=== PATIENT | female | born 1930 | race Caucasian/White ===

== ENCOUNTER 2020-02-25 22:11 | Inpatient (IN) | payer MEDICARE, OTHER ==
[~2020-02-25 22:11] MED LIST: Iopamidol-370 76% 500 ML 1 ML ONE
[2020-02-25] MEDS ORDERED: Ondansetron PF 4 MG/2 ML Vial ONE (22:49)
[2020-02-25 22:57] LABS: ALT (SGPT) 7 U/L (8-55); AST (SGOT) 13 U/L (5-34); Albumin 3.9 g/dL (3.4-4.8); Alkaline Phosphatase 66 U/L (40-110); Anion Gap 14 mmol/L (10-20); BUN (Urea Nitrogen) 9 mg/dL (9.8-20.1); CK (CPK) 30 U/L (29-168); Calc. Creatinine Clearance 0 mL/min (70-130); Calcium 9.4 mg/dL (7.8-10.44); Carbon Dioxide 26 mmol/L (23-31); Chloride 104 mmol/L (98-107); Estimated GFR-MDRD 75; Globulin 2.7 g/dL (2.4-3.5); Glucose 115 mg/dL (83-110); Lipase Less than 4 U/L (8-78); Potassium 3.5 mmol/L (3.5-5.1); Protein, Total 6.6 g/dL (6.0-8.3); Sodium 140 mmol/L (136-145)
[2020-02-25 23:17] LABS: #Eosinphils 0.8 thou/uL (0.0-0.7); #Monocytes 0.5 thou/uL (0.11-0.59); #Neutrophils 7.1 thou/uL (1.40-6.50); %Basophils 0.2 % (0.0-1.0); %Eosinophils 8.5 % (0.0-10.0); %Lymphocytes 10.7 % (21.0-51.0); %Neutrophils 75.6 % (42.0-75.0); Hemoglobin 14.2 g/dL (12.0-16.0); Mean Corpuscular HGB CONC 32.5 g/dL (32.0-36.0); Mean Corpuscular Hemoglobin 30.9 pg (27.0-31.0); Mean Corpuscular Volume 95.1 fL (78.0-98.0); Mean Platelet Volume 6.6 fL (7.4-10.4); Platelet Count 222 thou/uL (130-400); RBC Distribution Width 11.5 % (11.5-14.5); White Blood Cell (WBC) Count 9.4 thou/uL (4.8-10.8)
[2020-02-25 23:31] LABS: Bacteria/HPF 4+ HPF (None Seen); Bilirubin Negative (Negative); Blood, Urine 2+ (Negative); Clarity Turbid (Clear); Glucose, Urine (Dipstick) Normal (Negative); Ketone, Urine Trace mg/dL (Negative); Leukocyte 500 Leu/uL (Negative); Nitrite Negative (Negative); Protein, Urine (Dipstick) Negative (Neg-Trace); Specific Gravity, Urine 1.012 (1.002-1.036); Squamous Epithelial None Seen HPF (0-3); Urobilinogen Normal mg/dL (Less than 2); WBC/HPF Greater than 50 HPF (0-3)
[2020-02-25] MEDS ORDERED: Morphine 4 MG/ML VIAL ONE (23:40)
--- NOTE | 2020-02-25 23:40 | CT ---
EXAM: CT ABDOMEN AND PELVIS HISTORY: Trauma pain and cramping. Nausea. COMPARISON: None. Procedure: Multiple contiguous axial images were obtained and a CT of the abdomen and pelvis with IV contrast. C oronal reformats were performed. FINDINGS: Lower Chest: Chronic changes Vessels: Normal caliber aorta. Atherosclerosis. Heart: Enlarged heart. Small pericardial fluid. Abdomen: Portal vein:Patent Gallbladder: Cholelithiasis, without evidence of cholecystitis. Liver: Subcentimeter hypodensities are favored to be hepatic cysts. Largest hypodensity is in segment 6 of the liver measures 1.1 cm. No enhancing masses within the liver. Pancreas: Atrophy. No masses. Spleen: Appropriate enhancement. Adrenals: within normal limits. Kidneys: Symmetric renal cortical thinning. There are bilateral parapelvic cysts as well as bilateral cortical cysts. Bilaterally no obstructive uropathy. Peritoneum: Small amount of fluid in the paracolic gutters and perihepatic/perisplenic mesentery. Bowel: Limited evaluation by the lack of oral contrast. Jejunal and proximal ileal loops are dilated and fluid-filled. Right inguinal hernia. There is fluid in the hernia sac. There is also fluid in the adjacent small bowel loops. The afferent loops are fluid-filled. Efferent loops are decompressed but hyperemic. Ileocecal junction is normal. Scattered fecal material in a nondistended, nondilated colon. Diverticulosis, without evidence of diverticulitis. Normal caliber appendix. Mesentery and Retroperitoneum: No enlarged mesenteric or retroperitoneal lymph nodes. Abdominal Wall: Bilateral inguinal hernias. Right inguinal hernia contains a short segment of bowel w hich is incarcerated. Left inguinal hernia demonstrates mesenteric fat. Pelvis: Reproductive Organs: Reproductive organs are unremarkable. Pelvis: There is free fluid in the pelvis. No mass or lymphadenopathy. Bladder: Decompressed. Mild enhancement is nonspecific. Correlate for cystitis. 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 IMPRESSION: 1. Right-sided inguinal hernia with associated high-grade bowel obstruction. 2. Left inguinal hernia containing mesenteric fat. 3. Normal caliber appendix. 4. Diverticulosis, without evidence of diverticulitis.
[2020-02-25] MEDS ORDERED: Piperacillin/Tazobactam 3.375 GM VIAL ONE (23:48)
[2020-02-26] MEDS ORDERED: Promethazine HCl 25 MG/ML VIAL IM PRN (01:15)
[2020-02-26] MEDS ORDERED: hydrALAZINE 20 MG/ML VIAL SLOW IVP PRN (01:15)
[2020-02-26] MEDS ORDERED: Dextrose 5% in Water 1,000 ML IV PRN (01:15)
[2020-02-26] MEDS ORDERED: Dextrose 50% Abboject 50 ML SYRINGE SLOW IVP PRN (01:15)
[2020-02-26] MEDS: Morphine 2 MG/ML VIAL SLOW IVP PRN ×4 (01:29→18:12)
[2020-02-26] MEDS: Sodium Chloride 0.9% 1,000 ML IV SCH ×2 (01:29→11:11)
[2020-02-26] MEDS ORDERED: Gabapentin 300 MG CAP PO SCH (01:30)
[2020-02-26 01:55] VITALS: BMI 24.3
[2020-02-26] MEDS: Ondansetron PF 4 MG/2 ML Vial IVP PRN ×2 (03:20→11:10)
[2020-02-26 06:36] LABS: Anion Gap 17 mmol/L (10-20); BUN (Urea Nitrogen) 10 mg/dL (9.8-20.1); Calc. Creatinine Clearance 62 mL/min (70-130); Calcium 8.8 mg/dL (7.8-10.44); Carbon Dioxide 22 mmol/L (23-31); Chloride 105 mmol/L (98-107); Estimated GFR-MDRD 78; Glucose 142 mg/dL (83-110); Potassium 4.8 mmol/L (3.5-5.1); Sodium 139 mmol/L (136-145)
[2020-02-26] MEDS: Famotidine/PF 20 mg/2ml Vial SLOW IVP SCH ×2 (08:42→21:37)
[2020-02-26] MEDS: Famotidine 20 MG TAB PO SCH ×2 (08:43→21:33)
[2020-02-26] MEDS ORDERED: Lidocaine 1% PF 5 ML VIAL ONE (09:03)
[2020-02-26] MEDS ORDERED: PROPOFOL 200 MG/20 ML VIAL ONE (09:03)
[2020-02-26] MEDS ORDERED: Succinylcholine Chloride 20 MG/ML 10 ml SYRINGE FS ONE (09:03)
[2020-02-26] MEDS ORDERED: Rocuronium Bromide 10 MG/ML (10ML VIAL) ONE (09:03)
[2020-02-26] MEDS ORDERED: diphenhydrAMINE 50 MG/ML VIAL ONE (09:03)
[2020-02-26] MEDS ORDERED: Ondansetron PF 4 MG/2 ML Vial ONE (09:03)
[2020-02-26] MEDS ORDERED: Dexamethasone 20 MG/5 ML VIAL ONE (09:03)
[2020-02-26] MEDS ORDERED: cefOXitin 2 GM in Sodium Chloride 0.9% 100 ML IVPB SCH (09:36)
--- NOTE | 2020-02-26 09:53 | HP ---
CHIEF COMPLAINT: Incarcerated hernias. HISTORY OF PRESENT ILLNESS: This is an 89-year-old female with known history of hernia, who presents after having abdominal pain starting at noon yesterday. The pain was associated with bloating and nausea. She vomited once. She was seen in the emergency department where CT scan revealed incarcerated right inguinal hernia, with associated small-bowel obstruction. She underwent reduction of the hernia last night by me. She is admitted to the hospital for observation and hernia repair. Pain is well controlled now. PAST MEDICAL HISTORY: Includes: 1. Hypothyroidism. 2. Lymphoma. 3. GERD. SURGICAL HISTORY: She denies. MEDICATIONS: 1. Allopurinol. 2. Levothyroxine. 3. Gabapentin. 4. Aspirin. 5. Protonix. ALLERGIES: NO KNOWN DRUG ALLERGIES. SOCIAL HISTORY: No smoking. No alcohol. No other drugs. REVIEW OF SYSTEMS: Ten-system review of systems is otherwise negative unless described above. PHYSICAL EXAMINATION: VITAL SIGNS: Pulse 87, respirations 16, temperature 97.7, and blood pressure 152/75. HEENT: Sclerae anicteric. Oropharynx clear. NECK: No lymphadenopathy. CHEST: Clear. HEART: Regular rate. ABDOMEN: Soft. Tender and diffuse abdomen, that is mild, without guarding or rebound. The right inguinal hernia has been reduced. EXTREMITIES: No ischemia or edema to extremities. LABORATORY DATA: White blood cell count is 9, hemoglobin is 14, and platelet count is 222. Sodium 139, potassium 4.8, and creatinine 0.71. CT scan as above. ASSESSMENT: Incarcerated strangulated right inguinal hernia with successful reduction last night. PLAN: Right inguinal hernia repair with mesh later today. Risks, benefits, and alternatives discussed. She gives consent. We will do this today. Job ID: [id number]
[2020-02-26] MEDS: cefOXitin Sodium/Dextrose,Iso 2 GM in Premix Bag 1 BAG IVPB SCH ×2 (11:10→18:13)
[2020-02-26] MEDS ORDERED: Fentanyl 100 MCG/2 ML VIAL ONE (13:19)
[2020-02-26] MEDS ORDERED: Bupivacaine/Epinephrine 0.25% 30 ML VIAL ONE (13:33)
[2020-02-26] MEDS ORDERED: Bupivacaine PF 0.5% 30 ML VIAL ONE (13:39)
[2020-02-26] MEDS ORDERED: SUGAMMADEX SODIUM 200 MG/2 ML VIAL ONE (14:38)
[2020-02-26] MEDS ORDERED: Ondansetron HCl/PF 4 MG/2 ML Vial IVP PRN (16:17)
[2020-02-26] MEDS ORDERED: Morphine 4 MG/ML VIAL SLOW IVP PRN (16:43)
[2020-02-26 17:09] LABS: SARS-CoV-2 MS2 Positive; SARS-CoV-2 N Gene Negative; SARS-CoV-2 S Gene Negative; SARS-CoV-2 by NAA Not Detected (NotDetected); SARS-CoV-2 orf1ab Negative
[2020-02-26] MEDS: Gabapentin 300 MG CAP PO SCH (21:32)
[2020-02-26] MEDS: Acetaminophen 325 MG TAB PO PRN (21:35)
[2020-02-27] MEDS: cefOXitin Sodium/Dextrose,Iso 2 GM in Premix Bag 1 BAG IVPB SCH ×3 (03:48→18:19)
[2020-02-27] MEDS: Sodium Chloride 0.9% 1,000 ML IV SCH ×3 (03:52→14:32)
[2020-02-27 05:26] LABS: #Neutrophils 6.6 thou/uL (1.40-6.50); %Basophils 0.3 % (0.0-1.0); %Eosinophils 0.5 % (0.0-10.0); %Lymphocytes 11.4 % (21.0-51.0); %Monocytes 11.6 % (0.0-10.0); %Neutrophils 76.3 % (42.0-75.0); Hemoglobin 14.7 g/dL (12.0-16.0); Mean Corpuscular HGB CONC 33.9 g/dL (32.0-36.0); Mean Corpuscular Hemoglobin 32.8 pg (27.0-31.0); Mean Corpuscular Volume 96.8 fL (78.0-98.0); Mean Platelet Volume 7.3 fL (7.4-10.4); Platelet Count 173 thou/uL (130-400); RBC Distribution Width 11.5 % (11.5-14.5); Red Blood Cell (RBC) Count 4.47 mill/uL (4.20-5.40); White Blood Cell (WBC) Count 8.7 thou/uL (4.8-10.8)
[2020-02-27 05:51] LABS: Anion Gap 12 mmol/L (10-20); BUN (Urea Nitrogen) 12 mg/dL (9.8-20.1); Calc. Creatinine Clearance 50 mL/min (70-130); Calcium 7.9 mg/dL (7.8-10.44); Carbon Dioxide 21 mmol/L (23-31); Chloride 109 mmol/L (98-107); Estimated GFR-MDRD 61; Glucose 121 mg/dL (83-110); Potassium 4.4 mmol/L (3.5-5.1); Sodium 138 mmol/L (136-145)
--- NOTE | 2020-02-27 09:18 | PRG ---
DATE OF SERVICE: 02/27/2020 SUBJECTIVE: Postop day #1, right femoral hernia repair. Ms. Pool has no more nausea or vomiting. She is afraid to eat, but she states that she feels better today. OBJECTIVE: VITAL SIGNS: She is afebrile and her vital signs are stable. ABDOMEN: Soft. It is distended. There are occasional bowel sounds. Right groin incision healing well. On-Q catheter is in place. LABORATORY DATA: White blood cell count is 8, hemoglobin 14. Sodium 138, potassium 4.4, and creatinine 0.88. ASSESSMENT: 1. Postop #1, incarcerated femoral hernia repair with mesh. 2. Expected postop ileus secondary to incarcerated strangulated hernia. PLAN: We will allow full liquids today. Physical therapy. Home tomorrow, potentially if she is tolerating that and able to be up and around. Job ID: [id number]
[2020-02-27] MEDS: Gabapentin 300 MG CAP PO SCH ×3 (09:48→15:22)
[2020-02-27] MEDS: Famotidine/PF 20 mg/2ml Vial SLOW IVP SCH ×2 (09:48→20:46)
[2020-02-27] MEDS: Famotidine 20 MG TAB PO SCH ×2 (09:49→20:39)
[2020-02-27] MEDS: Ondansetron PF 4 MG/2 ML Vial IVP PRN (11:22)
--- NOTE | 2020-02-27 18:06 | OP ---
DATE OF PROCEDURE: 02/26/2020 PREOPERATIVE DIAGNOSIS: Incarcerated femoral hernia. POSTOPERATIVE DIAGNOSIS: Incarcerated femoral hernia. PROCEDURE PERFORMED: Incarcerated femoral hernia repair. ANESTHESIA: General. ESTIMATED BLOOD LOSS: Minimal. COMPLICATIONS: None. SPECIMENS: None. TECHNIQUE: The patient was taken to the operating room and laid supine on the operating room table. After general anesthetic was obtained, the abdomen was shaved, prepped, and draped in a sterile fashion. An oblique incision was made above the pubic tubercle and the right lower quadrant. Cautery was used to dissect down through Naima's to expose the external oblique. External oblique fibers were opened along their course of the external ring. There was no obvious direct or indirect hernia. Below the inguinal crease, there was a bulge of preperitoneal fat. This was dissected from surrounding structures and placed back into the femoral canal. A Prolene hernia system extended mesh was brought into the sterile field. A portion of the overlay was cut and fastened into a cylinder and held in place by a 2-0 silk suture, it was passed into the femoral canal. It was sewn to the inguinal ligament superiorly and medially. This filled the femoral canal and kept the fat from herniating back out. Next, the preperitoneal space was bluntly entered through the floor of the inguinal canal. This had been compromised during the earlier dissection, and the Prolene hernia system mesh underlay was placed in the preperitoneal space. The overlay was laid in the floor of the inguinal canal. The overlay was sewn distally to the pubic tubercle, medially to the transverse arch, and laterally to the shelving edge of inguinal ligament. The wounds were irrigated. A tunneled catheter for postop pain threaded above the incision, left on top of the mesh. External oblique was closed using 3-0 Vicryl. Naima's was closed using 3-0 Vicryl. Skin was closed using running 4-0 Monocryl and Dermabond. The patient was sent to Recovery in stable condition. All instrument counts, needle counts, and lap counts were correct. Job ID: [id number]
[2020-02-27] MEDS: Gabapentin 400 MG CAP PO SCH (20:39)
[2020-02-27] MEDS: Acetaminophen 325 MG TAB PO PRN (20:39)
[2020-02-28] MEDS: Sodium Chloride 0.9% 1,000 ML IV SCH (01:00)
[2020-02-28] MEDS: cefOXitin Sodium/Dextrose,Iso 2 GM in Premix Bag 1 BAG IVPB SCH (04:41)
[2020-02-28] MEDS: FORMOTEROL INH SCH ×2 (06:49→18:28)
[2020-02-28] MEDS: BUDESONIDE INH SCH ×2 (06:49→18:28)
[2020-02-28] MEDS: TIOTROPIUM INH SCH (06:51)
[2020-02-28] MEDS: Acetaminophen 325 MG TAB PO PRN ×2 (07:23→21:08)
[2020-02-28] MEDS: Ondansetron PF 4 MG/2 ML Vial IVP PRN (07:24)
[2020-02-28] MEDS: Gabapentin 300 MG CAP PO SCH ×2 (09:01→15:50)
[2020-02-28] MEDS: Famotidine 20 MG TAB PO SCH ×2 (09:01→21:09)
[2020-02-28] MEDS: Famotidine/PF 20 mg/2ml Vial SLOW IVP SCH ×2 (09:03→21:11)
[2020-02-28] MEDS ORDERED: traMADol HCl 50 MG TAB PO PRN (09:14)
--- NOTE | 2020-02-28 09:22 | PRG ---
DATE OF SERVICE: 02/28/2020 SUBJECTIVE: Ms. Pool has no complaints today. She tolerated the thick liquid diet without difficulty. She is having no more nausea, no vomiting. Not really ambulatory much yesterday except up to the bedside commode. OBJECTIVE: VITAL SIGNS: She is afebrile. Vital signs are stable. ABDOMEN: Soft. Her wounds are healing well. ASSESSMENT: Postop day #2 incarcerated femoral hernia repair with associated expected postop ileus, resolving. PLAN: To be more active today. Discontinue the pain catheter. I suspect she will be ready for discharge tomorrow Job ID: [id number]
[2020-02-28] MEDS ORDERED: rOPINIRole HCl 0.5 MG TAB PO SCH (21:00)
[2020-02-28] MEDS: Gabapentin 400 MG CAP PO SCH (21:09)
[2020-02-29] MEDS: TIOTROPIUM INH SCH (06:07)
[2020-02-29] MEDS: BUDESONIDE INH SCH (06:08)
[2020-02-29] MEDS: FORMOTEROL INH SCH (06:08)
[2020-02-29] MEDS: Acetaminophen 325 MG TAB PO PRN (06:12)
--- NOTE | 2020-02-29 09:00 | PDOC.GSPN ---
Surgery Progress Note: Subj - Subjective Patient reports: no new complaints, voiding w/o difficulty Narrative: Pt is a 89 y/o F who is post op day 2 for incarcerated abdominal hernia repair. Pt is doing well. She has been tolerating her GI soft diet well. She reports a bowel movement yesterday. Surgery Progress Note: Obj - Vital signs Vital signs: Vital Signs - Most Recent Temp Pulse Resp BP Pulse Ox 97.3 F L 69 14 129/63 95 02/29/20 07:27 02/29/20 07:27 02/29/20 07:27 02/29/20 07:27 02/29/20 07:27 - Physical Exam General: no distress, no pain ENT: no congestion Cardiovascular: regular rate and rhythm Respiratory: clear to auscultation, normal expansion, normal respiratory effort , breath sounds present Abdomen: soft, non tender, nondistended Wound: dressing clean,dry,intact, healing well Surgery Progress Note: Results - Labs Result Diagrams: 02/27/20 05:10 02/27/20 05:10 Surgery Progress Note: A/P - Problem (1) Hernia of abdominal cavity Current Visit: Yes Code(s): K46.9 - UNSPECIFIED ABDOMINAL HERNIA WITHOUT OBSTRUCTION OR GANGRENE Status: Resolved Assessment and Plan: Pt is doing well. She tolerates her diet. She has been walking with the help of PT. She states that she lives alone and her daughter comes to visit her once/ twice per month. She is active and takes care of her own. Due to her level of activity a home health service is suggested for her.
[2020-02-29] MEDS: Famotidine/PF 20 mg/2ml Vial SLOW IVP SCH (09:12)
[2020-02-29] MEDS: Famotidine 20 MG TAB PO SCH (09:47)
[2020-02-29] MEDS: Gabapentin 300 MG CAP PO SCH (09:47)
[2020-02-29 11:15] VITALS: BP 133/71; TEMP 98
--- NOTE | 2020-02-29 11:38 | PDOC.FMACP ---
Advance Care Planning - Problem (1) Palliative care encounter Status: Acute Code(s): Z51.5 - ENCOUNTER FOR PALLIATIVE CARE (2) Hernia of abdominal cavity Status: Resolved Code(s): K46.9 - UNSPECIFIED ABDOMINAL HERNIA WITHOUT OBSTRUCTION OR GANGRENE - Note Participants: patient, palliative care Summary: Palliative Care addressed Advanced Care Planning, allowed an opportunity to decline. The diagnosis, prognosis and goals of care were discussed. Appropriate forms and documentation to accomplish the goals of care were discussed. All questions were answered. Ms Pool elected to complete an MPOA as well as directive to physician. Original given to patient, copies made and placed on chart. Continue currently with full and aggressive measures. Please also refer to [facility] notes in note section. Time Spent (mins): 20
== END 2020-02-29 14:17 | disposition home or self-care (01) | DRG 351 ==
LOC: ERS 22:11 → SJJU 02-26 00:26 → OBSVTOIN 02-26 16:43 → SURG B 02-26 19:50
PROVIDERS: ADMIT Surgery; ATTEND Surgery
PROC: 0YU70JZ Supplement Right Femoral Region with Synthetic Substitute, Open Approach (ICD-10-PCS; principal; 2020-02-27)
DX: K41.30 Unilateral femoral hernia, with obstruction, without gangrene, not specified as recurrent (principal); K56.7 Ileus, unspecified; Z51.5 Encounter for palliative care; Z11.59 Encounter for screening for other viral diseases; E03.9 Hypothyroidism, unspecified; J45.909 Unspecified asthma, uncomplicated; K21.9 Gastro-esophageal reflux disease without esophagitis; M19.90 Unspecified osteoarthritis, unspecified site; Z79.890 Hormone replacement therapy; Z79.82 Long term (current) use of aspirin; Z79.899 Other long term (current) drug therapy; Z85.72 Personal history of non-Hodgkin lymphomas
CPT/HCPCS: 36415; 51701; 74177; 80048; 80053; 81003; 81015; 82550; 83605; 83690; 84484; 85025; 87077; 87086; 87186; 87635; 93005; 96361; 96365; 96372; 96375; 96376; C1781; G0378; J0500; J0694; J1100; J1200; J2270; J2405; J2543; J2704; J3010; J7620; Q9967; S0020; S0028; U0003